=== PATIENT | female | born 1980 | race Caucasian/White ===

== ENCOUNTER 2021-10-30 19:34 | Outpatient (REF) | payer SELFPAY ==
[2021-10-31 01:19] LABS: COVID-19 RT-PCR UVMMC Result Negative (Negative)
== END 2021-10-30 19:35 | disposition home or self-care (01) ==
LOC: LBN 19:34
PROVIDERS: Visit Provider Family Medicine
DX: Z20.822 Contact with and (suspected) exposure to COVID-19 (principal)
CPT/HCPCS: U0003

== ENCOUNTER 2021-11-09 15:29 | Outpatient (REF) | payer SELFPAY ==
[2021-11-09 10:00] LABS: HCG Quant, Pregnancy 410 mIU/mL (1-3)
[2021-11-09 17:40] LABS: Estradiol 198 pg/mL (See Note); Progesterone 31.6 ng/mL (See Table)
== END 2021-11-09 15:30 | disposition home or self-care (01) ==
LOC: LBN 15:29
PROVIDERS: Visit Provider Obstetrics & Gynecology
DX: Z32.00 Encounter for pregnancy test, result unknown (principal)
CPT/HCPCS: 82670; 84144; 84702

== ENCOUNTER 2021-11-12 16:21 | Outpatient (REF) | payer SELFPAY ==
[2021-11-12 09:40] LABS: HCG Quant, Pregnancy 1899 mIU/mL (1-3)
[2021-11-12 23:05] LABS: Estradiol 208 pg/mL (See Note)
== END 2021-11-12 16:22 | disposition home or self-care (01) ==
LOC: LBN 16:21
PROVIDERS: Visit Provider Obstetrics & Gynecology
DX: Z32.00 Encounter for pregnancy test, result unknown (principal)
CPT/HCPCS: 82670; 84144; 84702

== ENCOUNTER 2021-11-14 11:21 | Outpatient (REF) | payer SELFPAY ==
[2021-11-14 14:33] LABS: HCG Quant, Pregnancy 4899 mIU/mL (1-3)
[2021-11-14 23:01] LABS: Estradiol 206 pg/mL (See Note); Progesterone 33.8 ng/mL (See Table)
[2021-11-16 02:11] LABS: COVID-19 RT-PCR UVMMC Result Negative (Negative)
== END 2021-11-14 11:22 | disposition home or self-care (01) ==
LOC: LBN 11:21
PROVIDERS: Family Medicine; Visit Provider Obstetrics & Gynecology
DX: Z32.00 Encounter for pregnancy test, result unknown (principal); Z20.822 Contact with and (suspected) exposure to COVID-19
CPT/HCPCS: U0003; 82670; 84144; 84702

== ENCOUNTER 2022-12-11 01:34 | Outpatient (CLI) | payer OTHER, SELFPAY ==
--- NOTE | 2022-12-11 | DI.MRI_ITS ---
Exam(s) MR LOWER JOINT RT WO EXAM: MR LOWER JOINT RT WO CLINICAL HISTORY: SUSPECT LCL TEAR WITH LAT MENISCUS TEAR,LIGAMENT INSTABILITY,INTERNAL DERAN. TECHNIQUE: Multiplanar multisequence MRI was performed. COMPARISON: CR XR KNEE 3 VIEW RIGHT from 10/24/2022 FINDINGS: BONES: There is mild edema seen in the proximal tibia and fibula. No fracture is identified. JOINTS: Articular cartilage is unremarkable. No effusion is present. TENDONS: Extensor mechanism: Unremarkable. Medial retinaculum: Unremarkable. Lateral retinaculum: Unremarkable. Popliteus: Unremarkable. MUSCLES: Unremarkable. MENISCI: The medial meniscus is unremarkable. The lateral meniscus is unremarkable. SOFT TISSUES: Unremarkable. LIGAMENTS: Anterior Cruciate: Unremarkable. Posterior Cruciate: Unremarkable. Medial Collateral:Unremarkable. Lateral Collateral: Unremarkable. OTHER: IMPRESSION: 1. There is no evidence of a meniscal or ligament tear. 2. Marrow edema seen in the proximal tibia and fibula which may represent contusions. No fracture is identified. DATA REPOSITORY:
== END 2022-12-11 01:54 ==
PROVIDERS: Visit Provider Physician Assistant Medical
DX: M25.561 Pain in right knee (principal); M25.861 Other specified joint disorders, right knee; M25.361 Other instability, right knee; M23.8X1 Other internal derangements of right knee
CPT/HCPCS: 73721